=== PATIENT | female | born 1985 | race Caucasian/White ===

== ENCOUNTER 2025-06-26 14:06 | Inpatient (IN) | payer OTHER ==
[2025-06-29] MEDS ORDERED: Carboprost 250 MCG/ML AMP IM PRN (03:41)
[2025-06-29] MEDS ORDERED: Methylergonovine 0.2 MG/ML VIAL IM PRN (03:41)
[2025-06-29] MEDS ORDERED: Acetaminophen 500 MG TAB PO PRN (03:41)
[2025-06-29] MEDS ORDERED: Lidocaine 1% (PF) 30 ML VIAL SC PRN (03:41)
[2025-06-29] MEDS ORDERED: Ondansetron PF 4 MG/2 ML Vial IVP PRN ×2 (03:41→14:18)
[2025-06-29] MEDS ORDERED: HYDROcodone/Acetaminophen 5/325 mg Tablet PO PRN (03:41)
[2025-06-29] MEDS ORDERED: Diphenoxylate HCl/Atropine Tablet PO PRN (03:41)
[2025-06-29] MEDS ORDERED: hydrALAZINE 20 MG/ML VIAL SLOW IVP PRN (03:41)
[2025-06-29] MEDS ORDERED: Ibuprofen 800 MG TAB PO PRN (03:41)
[2025-06-29] MEDS ORDERED: Oxytocin 30 units/NS 500 ML 500 ML IV SCH (03:45)
[2025-06-29 03:51] LABS: Hematocrit 36.3 % (34.9-44.5); Hemoglobin 12.4 g/dL (12.0-15.5); Mean Corpuscular Hemoglobin 31.3 pg (27.0-33.0); Mean Corpuscular Volume 91.7 fL (81.6-98.3); Platelet Count 190 10x3/uL (150-450); Red Blood Cell (RBC) Count 3.96 10x6/uL (3.90-5.03); White Blood Cell (WBC) Count 8.47 10x3/uL (3.5-10.5)
[2025-06-29 04:28] LABS: Syphilis Antibody Index 0.07 S/CO (<1.00 Non-Reactive)
[2025-06-29 04:30] LABS: Hep B Surf Ag - L&D Non-Reactive S/CO (NonReactive)
[2025-06-29 05:31] VITALS: BMI 25.6
[2025-06-29] MEDS: Famotidine/PF 20 mg/2ml Vial SLOW IVP SCH (06:39)
[2025-06-29] MEDS: diphenhydrAMINE 50 MG/ML VIAL ONE (06:43)
[2025-06-29] MEDS ORDERED: Acetaminophen 325 MG TAB PO PRN (14:18)
[2025-06-29] MEDS ORDERED: diphenhydrAMINE 50 MG/ML VIAL IVP PRN (14:18)
[2025-06-29] MEDS ORDERED: Communication Order-Pharmacy FS SCH (14:30)
[2025-06-29] MEDS: fentaNYL 2 mcg/Ropivacaine 0.2% Epidural 100 ML CADD EPIDURAL SCH (14:52)
[2025-06-29] MEDS: Oxytocin 30 units/NS 500 ML 500 ML IV SCH (15:35)
[2025-06-30] MEDS ORDERED: Bicitra 30 ML UDCUP PO PRN (00:01)
[2025-06-30] MEDS ORDERED: Famotidine/PF 20 mg/2ml Vial SLOW IVP PRN (00:01)
[2025-06-30] MEDS ORDERED: Azithromycin 500 MG in Sodium Chloride 0.9% 250 ML 250 ML IVPB SCH (00:15)
[2025-06-30 00:32] LABS: Analyzer IN Cardio CS NICU; RapidComm Collect By RN
[2025-06-30 00:34] LABS: Analyzer IN Cardio CS NICU; RapidComm Collect By RN; pH (Cord, venous) 7.278 (7.250-7.350)
[2025-06-30] MEDS ORDERED: Ondansetron PF 4 MG/2 ML Vial IVP PRN ×3 (00:57→03:33)
[2025-06-30] MEDS ORDERED: HYDROmorphone 0.5 MG/0.5 ML SYRINGE SLOW IVP PRN (00:57)
[2025-06-30] MEDS ORDERED: Meperidine HCl/PF 25 MG (1 mL) VIAL SLOW IVP PRN (00:57)
[2025-06-30] MEDS ORDERED: diphenhydrAMINE 50 MG/ML VIAL IVP PRN (00:57)
[2025-06-30] MEDS ORDERED: Communication Order-Pharmacy FS SCH (01:00)
[2025-06-30] MEDS: Ketorolac Tromethamine 30 MG (1 mL) VIAL IVP SCH (02:08)
[2025-06-30] MEDS ORDERED: Bisacodyl 10 MG SUPP PR PRN (03:33)
[2025-06-30] MEDS ORDERED: Lanolin Ointment 7 GM TUBE TOP PRN (03:33)
[2025-06-30] MEDS ORDERED: hydrALAZINE 20 MG/ML VIAL SLOW IVP PRN (03:33)
[2025-06-30] MEDS ORDERED: diphenhydrAMINE 25 MG CAP PO PRN (03:33)
[2025-06-30] MEDS: diphenhydrAMINE 50 MG/ML VIAL IVP SCH (03:42)
[2025-06-30] MEDS: CEFAZOLIN 2 GM VIAL ONE (03:42)
[2025-06-30] MEDS: Azithromycin 500 MG VIAL ONE (03:42)
[2025-06-30] MEDS: Lidocaine 2% MPF 10 ML AMP (For Epidural Use) ONE ×2 (03:43)
[2025-06-30] MEDS: PHENYLEPHRINE-NS 100 MCG/ML 10 ML SYRINGE ONE (03:43)
[2025-06-30] MEDS: Ondansetron PF 4 MG/2 ML Vial ONE (03:43)
[2025-06-30] MEDS: Dexamethasone 10 MG/ML VIAL ONE (03:43)
[2025-06-30] MEDS: Erythromycin Base 0.5% Oint 1 GM TUBE ONE (03:43)
[2025-06-30] MEDS: Oxytocin 10 UNITS/ML VIAL ONE (03:43)
[2025-06-30] MEDS: Boostrix 0.5 ML (Tdap) VIAL (>/=7 yrs of age) IM ONE (04:01)
[2025-06-30] MEDS: Ferrous Sulfate 325 MG TAB PO SCH (07:36)
[2025-06-30] MEDS: Ketorolac Tromethamine 30 MG (1 mL) VIAL IVP PRN (09:30)
[2025-06-30] MEDS ORDERED: HYDROcodone/Acetaminophen 5/325 mg Tablet PO PRN ×2 (13:00)
[2025-06-30] MEDS: Ibuprofen 800 MG TAB PO SCH (21:33)
[2025-06-30] MEDS: Simethicone Chewable 80 MG TAB PO PRN (21:33)
[2025-07-01 04:46] LABS: Hematocrit 31.3 % (34.9-44.5); Hemoglobin 10.4 g/dL (12.0-15.5); Mean Corpuscular Hemoglobin 30.9 pg (27.0-33.0); Mean Corpuscular Volume 92.9 fL (81.6-98.3); Platelet Count 173 10x3/uL (150-450); Red Blood Cell (RBC) Count 3.37 10x6/uL (3.90-5.03); White Blood Cell (WBC) Count 15.74 10x3/uL (3.5-10.5)
[2025-07-01] MEDS: Acetaminophen 325 MG TAB PO PRN (07:37)
[2025-07-01] MEDS ORDERED: Bupivacaine 0.25% HCL 30 ML VIAL ONE (17:00)
[2025-07-01] MEDS ORDERED: Lidocaine 2% MPF 10 ML AMP (For Epidural Use) ONE (17:00)
[2025-07-02 08:50] VITALS: BP 99/58; TEMP 97.8
== END 2025-07-02 12:30 | disposition home or self-care (01) | DRG 788 ==
LOC: CSHLD 06-29 02:13 → CSHPP 06-30 03:23
PROVIDERS: ADMIT Student in an Organized Health Care Education/Training Program; ATTEND Student in an Organized Health Care Education/Training Program
PROC: 10D00Z1 Extraction of Products of Conception, Low, Open Approach (ICD-10-PCS; principal; 2025-06-30)
DX: O48.0 Post-term pregnancy (principal); Z3A.40 40 weeks gestation of pregnancy; Z88.2 Allergy status to sulfonamides; O62.1 Secondary uterine inertia; Z37.0 Single live birth; Z79.899 Other long term (current) drug therapy
CPT/HCPCS: 36415; 82805; 85027; 86780; 86850; 86900; 86901; 87340; J0665; J1100; J1200; J1308; J1885; J2274; J2405; J2590; J7120